=== PATIENT | female | born 1980 | race African-American/Black ===

== ENCOUNTER 2019-03-21 14:51 | Emergency (ER) | payer OTHER ==
[2019-03-21 14:56] VITALS: BP 120/72; PULSE 80; TEMP 98.1; BMI 25.8
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
[2019-03-21 15:49] LABS: BASO % 0.2 % (0-2.0); EOS % 0.6 % (0-4.5); HEMATOCRIT 41.8 % (32.4-45.2); HEMOGLOBIN 13.5 GM/dL (10.7-15.3); LYMPH % 23.5 % (8-40); MCH 28.8 pg (25.7-33.7); MCHC 32.3 g/dl (32.0-36.0); MEAN PLT VOLUME 8.7 fl (7.5-11.1); MONO % 6.9 % (3.8-10.2); NEUT % 68.8 % (42.8-82.8); PLATELET COUNT 175 K/MM3 (134-434); RDW 13.9 % (11.6-15.6)
[2019-03-21 16:32] LABS: ALBUMIN 3.7 g/dl (3.4-5.0); BILIRUBIN,TOTAL 0.3 mg/dL (0.2-1); BLOOD UREA NITROGEN 10.9 mg/dL (7-18); CALCIUM 8.8 mg/dL (8.5-10.1); CREATININE 0.9 mg/dL (0.55-1.3); POTASSIUM 4.5 mmol/L (3.5-5.1); TOT PROT 7.5 g/dl (6.4-8.2)
[2019-03-21] MEDS ORDERED: HIV POST EXPOSURE PROPHYLAXIS KIT NR ONE (18:46)
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
[2019-03-21] MEDS ORDERED: HIV POST EXPOSURE PROPHYLAXIS KIT PO ONE (18:55)
== END 2019-03-21 19:05 | disposition home or self-care (01) ==
LOC: JERFT 14:51
DX: Z77.21 Contact with and (suspected) exposure to potentially hazardous body fluids (principal)
CPT/HCPCS: 36415; 80053; 84702; 85025; 86317; 86704; 86706; 86803; 87340; 87389; 99282-25

== ENCOUNTER 2020-12-19 18:32 | Emergency (ER) | payer OTHER ==
[2020-12-19 18:51] VITALS: BP 126/82; PULSE 85; TEMP 97; BMI 27.8
[2020-12-19] MEDS ORDERED: IBUPROFEN 400 MG TABLET (FP) PO ONE ×2 (19:58→20:26)
== END 2020-12-19 20:20 | disposition home or self-care (01) ==
LOC: JERFT 18:32
DX: M79.18 Myalgia, other site (principal); S20.222A Contusion of left back wall of thorax, initial encounter; W10.8XXA Fall (on) (from) other stairs and steps, initial encounter; Y92.512 Supermarket, store or market as the place of occurrence of the external cause; Y93.01 Activity, walking, marching and hiking
CPT/HCPCS: 72100-TC-FY; 73523-TC-FY; 99284-25